=== PATIENT | male | born 1990 | race African-American/Black ===

== ENCOUNTER 2017-05-25 20:21 | Emergency (ER) | payer MEDICARE | END 2017-05-25 21:37 | disposition home or self-care (01) | LOC: D.ER 20:21 | DX: J01.90 Acute sinusitis, unspecified (principal); R51 Headache; F17.200 Nicotine dependence, unspecified, uncomplicated ==

== ENCOUNTER 2017-05-27 17:52 | Emergency (ER) | payer MEDICARE | END 2017-05-27 21:38 | disposition home or self-care (01) | LOC: D.ER 17:52 | DX: J06.9 Acute upper respiratory infection, unspecified (principal); R11.0 Nausea ==

== ENCOUNTER 2017-06-15 21:10 | Emergency (ER) | payer MEDICARE | END 2017-06-15 22:39 | disposition home or self-care (01) | LOC: D.ER 21:10 | DX: R51 Headache (principal); R30.0 Dysuria; F17.200 Nicotine dependence, unspecified, uncomplicated ==

== ENCOUNTER 2017-07-20 03:32 | Emergency (ER) | payer MEDICARE | END 2017-07-20 04:15 | disposition home or self-care (01) | LOC: D.ER 03:32 | DX: G89.29 Other chronic pain (principal); M54.2 Cervicalgia ==

== ENCOUNTER 2017-08-14 00:49 | Emergency (ER) | payer MEDICARE | END 2017-08-14 03:10 | disposition home or self-care (01) | LOC: D.ER 00:49 | DX: R51 Headache (principal) ==

== ENCOUNTER 2017-09-02 23:56 | Emergency (ER) | payer MEDICARE | END 2017-09-03 00:22 | disposition home or self-care (01) | LOC: D.ER 23:56 | DX: S60.311D Abrasion of right thumb, subsequent encounter (principal); X58.XXXD Exposure to other specified factors, subsequent encounter ==

== ENCOUNTER 2018-02-21 02:49 | Emergency (ER) | payer MEDICARE ==
[~2018-02-21] VITALS: Ht 180.3 cm; Wt 59.1 kg
[2018-02-21 02:57] VITALS: BP 124/88; Ht 180.3 cm; Wt 59.1 kg
== END 2018-02-21 03:30 ==
LOC: D.ER 02:49
DX: Z00.00 Encounter for general adult medical examination without abnormal findings (principal); F17.200 Nicotine dependence, unspecified, uncomplicated

== ENCOUNTER 2018-02-23 18:32 | Emergency (ER) | payer MEDICARE ==
[2018-02-23 18:37] VITALS: Ht 180.3 cm
[2018-02-23] MEDS ORDERED: TORADOL10 MG PO (20:14)
[2018-02-23 20:25] VITALS: BP 132/72
== END 2018-02-23 20:27 | disposition home or self-care (01) ==
LOC: D.ER 18:32
DX: S49.91XA Unspecified injury of right shoulder and upper arm, initial encounter (principal); W22.8XXA Striking against or struck by other objects, initial encounter; Y93.89 Activity, other specified; Y92.89 Other specified places as the place of occurrence of the external cause; S46.812A Strain of other muscles, fascia and tendons at shoulder and upper arm level, left arm, initial encounter; R09.89 Other specified symptoms and signs involving the circulatory and respiratory systems; R05 Cough

== ENCOUNTER 2018-03-21 22:41 | Emergency (ER) | payer MEDICARE ==
[~2018-03-21] VITALS: Ht 180.3 cm; Wt 59.1 kg
[~2018-03-21 22:41] MED LIST: TORADOL10 MG PO
[2018-03-21 22:52] VITALS: Ht 180.3 cm; Wt 59.1 kg
[2018-03-21] MEDS ORDERED: PREDNISONE20 MG PO (23:11)
[2018-03-21 23:56] VITALS: BP 132/77
== END 2018-03-21 23:57 | disposition home or self-care (01) ==
LOC: D.ER 22:41
DX: J06.9 Acute upper respiratory infection, unspecified (principal)

== ENCOUNTER 2018-03-24 00:55 | Emergency (ER) | payer MEDICARE ==
[~2018-03-24] VITALS: Ht 180.3 cm; Wt 70.5 kg
[~2018-03-24 00:55] MED LIST changes: +PREDNISONE20 MG PO
[2018-03-24 01:04] VITALS: Ht 180.3 cm; Wt 70.5 kg
[2018-03-24] MEDS ORDERED: VISTARIL25 MG PO (01:06)
[2018-03-24 02:45] VITALS: BP 129/77
[2018-03-25] MEDS ORDERED: ZPAK PO (00:07)
== END 2018-03-24 02:46 | disposition home or self-care (01) ==
LOC: D.ER 00:55
DX: J02.9 Acute pharyngitis, unspecified (principal); G47.00 Insomnia, unspecified

== ENCOUNTER 2018-03-24 23:14 | Emergency (ER) | payer MEDICARE ==
[~2018-03-24] VITALS: Ht 180.3 cm; Wt 63.6 kg
[~2018-03-24 23:14] MED LIST changes: +VISTARIL25 MG PO
[2018-03-24 23:18] VITALS: BP 130/90; Ht 180.3 cm; Wt 63.6 kg
[2018-03-25] MEDS ORDERED: ZPAK PO (00:07)
[2018-03-26] MEDS ORDERED: CYCLOBENZAPRINE10 MG PO (03:30)
[2018-03-26] MEDS ORDERED: IBUPROFEN800 MG PO (03:30)
[2018-03-26] MEDS ORDERED: PENICILLIN V P500 MG PO (03:30)
[2018-03-26] MEDS ORDERED: ACETAMINOPHEN500 M1 PO (03:30)
== END 2018-03-25 01:18 | disposition home or self-care (01) ==
LOC: D.ER 23:14
DX: J06.9 Acute upper respiratory infection, unspecified (principal)

== ENCOUNTER 2018-03-26 02:08 | Emergency (ER) | payer MEDICARE ==
[~2018-03-26] VITALS: Ht 180.3 cm; Wt 75.0 kg
[~2018-03-26 02:08] MED LIST changes: +ZPAK PO
[2018-03-26 02:19] VITALS: Ht 180.3 cm; Wt 75.0 kg
[2018-03-26] MEDS ORDERED: PENICILLIN V P500 MG PO (03:30)
[2018-03-26] MEDS ORDERED: CYCLOBENZAPRINE10 MG PO (03:30)
[2018-03-26] MEDS ORDERED: IBUPROFEN800 MG PO (03:30)
[2018-03-26] MEDS ORDERED: ACETAMINOPHEN500 M1 PO (03:30)
[2018-03-26 03:55] VITALS: BP 138/78
== END 2018-03-26 03:56 | disposition home or self-care (01) ==
LOC: D.ER 02:08
DX: K02.9 Dental caries, unspecified (principal); R51 Headache; K08.89 Other specified disorders of teeth and supporting structures

== ENCOUNTER 2018-04-06 00:11 | Emergency (ER) | payer MEDICARE | END 2018-04-06 01:22 | disposition home or self-care (01) | LOC: D.ER 00:11 | DX: J06.9 Acute upper respiratory infection, unspecified (principal); R05 Cough; R50.9 Fever, unspecified; J02.9 Acute pharyngitis, unspecified; F17.200 Nicotine dependence, unspecified, uncomplicated ==

== ENCOUNTER 2018-04-19 23:12 | Emergency (ER) | payer MEDICARE ==
[~2018-04-19] VITALS: Ht 180.3 cm; Wt 72.7 kg
[~2018-04-19 23:12] MED LIST changes: +ACETAMINOPHEN500 M1 PO; +CYCLOBENZAPRINE10 MG PO; +IBUPROFEN800 MG PO; +PENICILLIN V P500 MG PO; +ROBITUSSIN DM 110 ML PO
[2018-04-19 23:26] VITALS: Ht 180.3 cm; Wt 72.7 kg
[2018-04-20 00:24] VITALS: BP 138/88
== END 2018-04-20 00:22 | disposition home or self-care (01) ==
LOC: D.ER 23:12
DX: Z76.5 Malingerer [conscious simulation] (principal)

== ENCOUNTER 2018-05-17 03:24 | Emergency (ER) | payer MEDICARE ==
[~2018-05-17] VITALS: Ht 180.3 cm; Wt 59.1 kg
[2018-05-17 03:29] VITALS: Ht 180.3 cm; Wt 59.1 kg
[2018-05-17] MEDS ORDERED: IBUPROFEN800 MG PO (04:15)
[2018-05-17 04:26] VITALS: BP 128/90
== END 2018-05-17 04:30 | disposition home or self-care (01) ==
LOC: D.ER 03:24
DX: S69.91XA Unspecified injury of right wrist, hand and finger(s), initial encounter (principal); W22.8XXA Striking against or struck by other objects, initial encounter; Y93.89 Activity, other specified; Y92.89 Other specified places as the place of occurrence of the external cause; F17.200 Nicotine dependence, unspecified, uncomplicated

== ENCOUNTER 2018-05-21 22:00 | Emergency (ER) | payer MEDICARE ==
[~2018-05-21] VITALS: Ht 180.3 cm; Wt 68.2 kg
[2018-05-21 22:15] VITALS: Ht 180.3 cm; Wt 68.2 kg
[2018-05-21 23:59] VITALS: BP 133/79
== END 2018-05-21 23:59 | disposition home or self-care (01) ==
LOC: D.ER 22:00
DX: Z76.5 Malingerer [conscious simulation] (principal); F17.200 Nicotine dependence, unspecified, uncomplicated

== ENCOUNTER 2018-05-24 00:37 | Emergency (ER) | payer MEDICARE ==
[~2018-05-24] VITALS: Ht 180.3 cm; Wt 72.7 kg
[2018-05-24 00:52] VITALS: Ht 180.3 cm; Wt 72.7 kg
[2018-05-24 01:29] VITALS: BP 118/67
[2018-05-25] MEDS ORDERED: AMOXICILLIN500 M1 PO (00:56)
[2018-05-25] MEDS ORDERED: PREDNISONE20 MG PO (00:56)
== END 2018-05-24 01:00 | disposition home or self-care (01) ==
LOC: D.ER 00:37
DX: M25.511 Pain in right shoulder (principal)

== ENCOUNTER 2018-05-25 00:41 | Emergency (ER) | payer MEDICARE ==
[~2018-05-25] VITALS: Ht 180.3 cm; Wt 63.6 kg
[2018-05-25 00:45] VITALS: Ht 180.3 cm; Wt 63.6 kg
[2018-05-25] MEDS ORDERED: AMOXICILLIN500 M1 PO (00:56)
[2018-05-25] MEDS ORDERED: PREDNISONE20 MG PO (00:56)
[2018-05-25 01:15] VITALS: BP 117/56
== END 2018-05-25 01:17 | disposition home or self-care (01) ==
LOC: D.ER 00:41
DX: J02.9 Acute pharyngitis, unspecified (principal); J06.9 Acute upper respiratory infection, unspecified

== ENCOUNTER 2018-05-27 00:37 | Emergency (ER) | payer MEDICARE ==
[~2018-05-27] VITALS: Ht 180.3 cm; Wt 70.5 kg
[~2018-05-27 00:37] MED LIST changes: +AMOXICILLIN500 M1 PO
[2018-05-27 00:55] VITALS: Ht 180.3 cm; Wt 70.5 kg
[2018-05-27] MEDS ORDERED: TORADOL10 MG PO (01:33)
[2018-05-27] MEDS ORDERED: ROBAXIN500 MG PO (01:33)
[2018-05-27 02:09] VITALS: BP 130/90
== END 2018-05-27 02:09 | disposition home or self-care (01) ==
LOC: D.ER 00:37
DX: M25.511 Pain in right shoulder (principal)

== ENCOUNTER 2018-06-13 05:22 | Emergency (ER) | payer MEDICARE ==
[~2018-06-13] VITALS: Ht 180.3 cm; Wt 59.1 kg
[~2018-06-13 05:22] MED LIST changes: +ROBAXIN500 MG PO
[2018-06-13 05:27] VITALS: BP 130/88; Ht 180.3 cm; Wt 59.1 kg
[2018-06-13] MEDS ORDERED: ROBITUSSIN DM 110 ML PO (05:37)
== END 2018-06-13 05:45 | disposition home or self-care (01) ==
LOC: D.ER 05:22
DX: J06.9 Acute upper respiratory infection, unspecified (principal); J02.9 Acute pharyngitis, unspecified

== ENCOUNTER 2018-11-21 21:43 | Emergency (ER) | payer MEDICARE ==
[~2018-11-21] VITALS: Ht 180.3 cm; Wt 59.2 kg
[2018-11-21 21:58] VITALS: Ht 180.3 cm; Wt 59.2 kg
[2018-11-21] MEDS ORDERED: DICLOFENAC SODI50 MG PO (23:44)
[2018-11-22 00:53] VITALS: BP 130/84
== END 2018-11-22 00:53 | disposition home or self-care (01) ==
LOC: D.ER 21:43
DX: R07.81 Pleurodynia (principal); F17.210 Nicotine dependence, cigarettes, uncomplicated

== ENCOUNTER 2018-12-06 15:48 | Emergency (ER) | payer MEDICARE ==
[~2018-12-06] VITALS: Ht 180.3 cm; Wt 54.5 kg
[~2018-12-06 15:48] MED LIST changes: +DICLOFENAC SODI50 MG PO
[2018-12-06 15:51] VITALS: Ht 180.3 cm; Wt 54.5 kg
[2018-12-06 16:57] LABS: APPEARANCE CLEAR (CLEAR); BILIRUBIN NEGATIVE (NEGATIVE); COLOR YELLOW (YELLOW); GLUCOSE NEGATIVE (NEGATIVE); KETONE NEGATIVE (NEGATIVE); NITRITE NEGATIVE (NEGATIVE); PROTEIN 1+ mg/dL (NEGATIVE); UROBILINOGEN NORMAL (NORMAL)
[2018-12-06 17:00] LABS: BACTERIA FEW /hpf (NONE SEEN); EPITHELIAL CELLS 0-5 /hpf (0-5); MUCUS >1+ /lpf (NONE SEEN); RED CELLS - URINE OCC /hpf (0-5); WHITE CELLS - URINE 0-5 /hpf (0-5)
[2018-12-06 17:40] VITALS: BP 117/80
== END 2018-12-06 17:39 | disposition home or self-care (01) ==
LOC: D.ER 15:48
PROVIDERS: Emergency Medicine
DX: R10.30 Lower abdominal pain, unspecified (principal)

== ENCOUNTER 2018-12-15 22:37 | Emergency (ER) | payer MEDICARE ==
[~2018-12-15] VITALS: Ht 180.3 cm; Wt 68.2 kg
[2018-12-15 22:44] VITALS: BP 127/76; Ht 180.3 cm; Wt 68.2 kg
[2018-12-15] MEDS ORDERED: NAPROSYN500 MG PO (23:24)
== END 2018-12-15 23:29 | disposition home or self-care (01) ==
LOC: D.ER 22:37
DX: S63.501A Unspecified sprain of right wrist, initial encounter (principal); X58.XXXA Exposure to other specified factors, initial encounter; Y93.89 Activity, other specified; Y92.89 Other specified places as the place of occurrence of the external cause

== ENCOUNTER 2018-12-16 23:57 | Emergency (ER) | payer MEDICARE ==
[~2018-12-16] VITALS: Ht 180.3 cm; Wt 59.1 kg
[~2018-12-16 23:57] MED LIST changes: +NAPROSYN500 MG PO
[2018-12-17 00:10] VITALS: BP 128/82; Ht 180.3 cm; Wt 59.1 kg
== END 2018-12-17 00:25 | disposition home or self-care (01) ==
LOC: D.ER 23:57
DX: M25.531 Pain in right wrist (principal)

== ENCOUNTER 2018-12-30 16:57 | Emergency (ER) | payer MEDICARE ==
[~2018-12-30] VITALS: Ht 180.3 cm; Wt 59.1 kg
[2018-12-30 17:39] VITALS: BP 127/83; Ht 180.3 cm; Wt 59.1 kg
== END 2019-01-26 16:54 | disposition home or self-care (01) ==
LOC: D.ER 16:57
DX: J02.9 Acute pharyngitis, unspecified (principal)

== ENCOUNTER 2019-01-17 22:27 | Emergency (ER) | payer MEDICARE ==
[~2019-01-17] VITALS: Ht 180.3 cm; Wt 54.5 kg
[2019-01-17 22:33] VITALS: Ht 180.3 cm; Wt 54.5 kg
[2019-01-17 23:57] VITALS: BP 118/81
== END 2019-01-17 23:57 | disposition home or self-care (01) ==
LOC: D.ER 22:27
DX: M25.531 Pain in right wrist (principal)

== ENCOUNTER 2019-02-08 04:39 | Emergency (ER) | payer MEDICARE ==
[~2019-02-08] VITALS: Ht 180.3 cm; Wt 68.2 kg
[2019-02-08 04:44] VITALS: Ht 180.3 cm; Wt 68.2 kg
[2019-02-08] MEDS ORDERED: SKELAXIN800 MG PO (05:16)
[2019-02-08] MEDS ORDERED: NAPROSYN500 MG PO (05:16)
[2019-02-08 05:25] VITALS: BP 125/80
== END 2019-02-08 05:25 | disposition home or self-care (01) ==
LOC: D.ER 04:39
DX: M25.511 Pain in right shoulder (principal); M25.512 Pain in left shoulder; F17.200 Nicotine dependence, unspecified, uncomplicated

== ENCOUNTER 2019-02-09 23:33 | Emergency (ER) | payer MEDICARE ==
[~2019-02-09] VITALS: Ht 180.3 cm; Wt 59.1 kg
[~2019-02-09 23:33] MED LIST changes: +SKELAXIN800 MG PO
[2019-02-09 23:36] VITALS: Ht 180.3 cm; Wt 59.1 kg
[2019-02-10] MEDS ORDERED: BENADRYL25 MG PO (00:44)
[2019-02-10 00:56] VITALS: BP 137/73
== END 2019-02-10 00:57 | disposition home or self-care (01) ==
LOC: D.ER 23:33
DX: G47.00 Insomnia, unspecified (principal)

== ENCOUNTER 2019-02-14 20:23 | Emergency (ER) | payer MEDICARE ==
[~2019-02-14] VITALS: Ht 180.3 cm; Wt 59.0 kg
[~2019-02-14 20:23] MED LIST changes: +BENADRYL25 MG PO
[2019-02-14 20:36] VITALS: Ht 180.3 cm; Wt 59.0 kg
[2019-02-14] MEDS ORDERED: BENADRYL25 MG PO (20:58)
[2019-02-14 22:16] VITALS: BP 122/85
== END 2019-02-14 21:10 | disposition home or self-care (01) ==
LOC: D.ER 20:23
DX: G47.00 Insomnia, unspecified (principal); Z59.0 Homelessness

== ENCOUNTER 2019-02-22 23:19 | Emergency (ER) | payer MEDICARE ==
[~2019-02-22] VITALS: Ht 180.3 cm; Wt 63.5 kg
[2019-02-22 23:33] VITALS: Ht 180.3 cm; Wt 63.5 kg
[2019-02-22] MEDS ORDERED: NAPROSYN500 MG PO (23:51)
[2019-02-23 00:21] VITALS: BP 121/77
== END 2019-02-23 00:22 | disposition home or self-care (01) ==
LOC: D.ER 23:19
DX: M25.512 Pain in left shoulder (principal)

== ENCOUNTER 2019-04-26 19:50 | Emergency (ER) | payer MEDICARE ==
[~2019-04-26] VITALS: Ht 180.3 cm; Wt 62.7 kg
[2019-04-26 20:24] VITALS: Ht 180.3 cm; Wt 62.7 kg
[2019-04-26 20:56] LABS: BASOPHILS 0.2 % (0-2); EOSINOPHILS 1.9 % (0-7); HEMATOCRIT 40.1 % (42.0-54.0); HEMOGLOBIN 13.7 g/dL (13.5-17.5); IMMATURE GRANULOCYTES 0.2 % (0-5); LYMPHOCYTES 23.1 % (15-50); MCH 30.5 pg (26.0-34.0); MCHC 34.2 g/dL (31.0-37.0); MCV 89.3 fL (80.0-100.0); MEAN PLATELET VOLUME 9.8 fL (7.4-10.4); MONOCYTES 9.7 % (2-11); NEUTROPHILS 64.9 % (40-80); PLATELET COUNT 199 10x3/uL (130-400); RBC 4.49 10x6/uL (4.20-6.10); RDW 12.7 % (11.5-14.5); WBC 5.8 10x3/uL (4.8-10.8)
[2019-04-26 21:13] LABS: CALC OSMOLALITY 284 mosm/kg (275-300); CALCIUM 8.7 mg/dL (8.5-10.1); CARBON DIOXIDE 32.8 mmol/L (21.0-32.0); CHLORIDE - SERUM 108 mmol/L (98-107); CREATININE - SERUM 0.8 mg/dL (0.6-1.3); GLUCOSE 104 mg/dL (74-106); POTASSIUM - SERUM 4.3 mmol/L (3.5-5.1); SODIUM 144 mmol/L (136-145); UREA NITROGEN 8 mg/dL (7-18); eGFR NON AFRICAN AMERICAN > 90 mL/min (90-120)
[2019-04-26 21:20] LABS: ALBUMIN 3.8 g/dL (3.4-5.0); ALKALINE PHOSPHATASE 110 U/L (46-116); ALT (SGPT) 24 U/L (10-68); BILIRUBIN - TOTAL 0.24 mg/dL (0.2-1.3); PROTEIN - SERUM 7.2 g/dL (6.4-8.2)
[2019-04-26 21:25] LABS: LIPASE 47 U/L (73-393)
[2019-04-26] MEDS ORDERED: EC-NAPROSYN500 MG PO (23:25)
[2019-04-26] MEDS ORDERED: DULCOLAX STOOL100 MG PO (23:25)
[2019-04-26 23:49] VITALS: BP 118/71
== END 2019-04-26 23:49 | disposition home or self-care (01) ==
LOC: D.ER 19:50
PROVIDERS: Family Medicine
DX: K59.00 Constipation, unspecified (principal); M25.531 Pain in right wrist

== ENCOUNTER 2019-05-09 23:40 | Emergency (ER) | payer MEDICARE ==
[~2019-05-09] VITALS: Ht 180.3 cm; Wt 72.6 kg
[~2019-05-09 23:40] MED LIST changes: +DULCOLAX STOOL100 MG PO; +EC-NAPROSYN500 MG PO
[2019-05-09 23:56] VITALS: Ht 180.3 cm; Wt 72.6 kg
[2019-05-10 01:10] VITALS: BP 132/84
== END 2019-05-10 01:11 | disposition home or self-care (01) ==
LOC: D.ER 23:40
DX: Z00.00 Encounter for general adult medical examination without abnormal findings (principal); Z76.5 Malingerer [conscious simulation]

== ENCOUNTER 2019-05-13 01:16 | Emergency (ER) | payer MEDICARE ==
[~2019-05-13] VITALS: Ht 180.3 cm; Wt 75.0 kg
[2019-05-13 01:38] VITALS: Ht 180.3 cm; Wt 75.0 kg
[2019-05-13] MEDS ORDERED: IBUPROFEN800 MG PO (01:54)
[2019-05-13 02:02] VITALS: BP 133/89
== END 2019-05-13 02:03 | disposition home or self-care (01) ==
LOC: D.ER 01:16
DX: R07.89 Other chest pain (principal); M25.512 Pain in left shoulder

== ENCOUNTER 2019-05-15 19:07 | Emergency (ER) | payer MEDICARE ==
[~2019-05-15] VITALS: Ht 180.3 cm; Wt 75.0 kg
[2019-05-15 19:13] VITALS: Ht 180.3 cm; Wt 75.0 kg
[2019-05-15 19:45] VITALS: BP 118/72
== END 2019-05-15 19:45 | disposition home or self-care (01) ==
LOC: D.ER 19:07
DX: Z13.89 Encounter for screening for other disorder (principal)

== ENCOUNTER 2019-06-22 21:34 | Emergency (ER) | payer MEDICARE ==
[~2019-06-22] VITALS: Ht 180.3 cm; Wt 63.6 kg
[2019-06-22 21:41] VITALS: Ht 180.3 cm; Wt 63.6 kg
[2019-06-22 22:52] VITALS: BP 120/71
== END 2019-06-22 22:52 | disposition home or self-care (01) ==
LOC: D.ER 21:34
DX: R51 Headache (principal)

== ENCOUNTER 2019-07-03 00:31 | Emergency (ER) | payer MEDICARE ==
[~2019-07-03] VITALS: Ht 180.3 cm; Wt 58.2 kg
[2019-07-03 00:57] VITALS: BP 144/78; Ht 180.3 cm; Wt 58.2 kg
== END 2019-07-03 01:48 | disposition home or self-care (01) ==
LOC: D.ER 00:31
DX: R51 Headache (principal)

== ENCOUNTER 2019-07-08 14:35 | Emergency (ER) | payer MEDICARE ==
[~2019-07-08] VITALS: Ht 180.3 cm; Wt 59.1 kg
[2019-07-08 14:39] VITALS: BP 117/65; Ht 180.3 cm; Wt 59.1 kg
== END 2019-07-08 15:25 | disposition home or self-care (01) ==
LOC: D.ER 14:35
DX: R51 Headache (principal)

== ENCOUNTER 2019-07-15 16:19 | Emergency (ER) | payer MEDICARE ==
[~2019-07-15] VITALS: Ht 180.3 cm; Wt 59.1 kg
[2019-07-15 16:28] VITALS: Ht 180.3 cm; Wt 59.1 kg
[2019-07-15] MEDS ORDERED: ACETAMINOPHEN500 M1 PO (17:00)
[2019-07-15 17:26] VITALS: BP 110/70
== END 2019-07-15 17:17 | disposition home or self-care (01) ==
LOC: D.ER 16:19
DX: R51 Headache (principal)

== ENCOUNTER 2019-07-16 02:16 | Emergency (ER) | payer MEDICARE ==
[~2019-07-16] VITALS: Ht 180.3 cm; Wt 59.0 kg
[2019-07-16 02:29] VITALS: BP 137/96; Ht 180.3 cm; Wt 59.0 kg
== END 2019-07-16 03:14 | disposition home or self-care (01) ==
LOC: D.ER 02:16
DX: S60.221A Contusion of right hand, initial encounter (principal); W22.8XXA Striking against or struck by other objects, initial encounter; Y93.9 Activity, unspecified; Y92.9 Unspecified place or not applicable

== ENCOUNTER 2019-09-13 23:32 | Emergency (ER) | payer MEDICARE ==
[~2019-09-13] VITALS: Ht 180.3 cm; Wt 81.8 kg
[2019-09-13 23:58] VITALS: Ht 180.3 cm; Wt 81.8 kg
[2019-09-14 01:58] VITALS: BP 121/87
== END 2019-09-14 02:05 | disposition home or self-care (01) ==
LOC: D.ER 23:32
DX: K59.00 Constipation, unspecified (principal); R10.9 Unspecified abdominal pain

== ENCOUNTER 2019-10-01 01:11 | Emergency (ER) | payer MEDICARE ==
[~2019-10-01] VITALS: Ht 180.3 cm; Wt 54.5 kg
[2019-10-01 01:18] VITALS: BP 147/103; Ht 180.3 cm; Wt 54.5 kg
[2019-10-01] MEDS ORDERED: STERAPRED 5MG 65 M1 PO (02:07)
== END 2019-10-01 02:38 | disposition home or self-care (01) ==
LOC: D.ER 01:11
DX: J02.9 Acute pharyngitis, unspecified (principal); R07.0 Pain in throat

== ENCOUNTER 2019-10-03 02:43 | Emergency (ER) | payer MEDICARE ==
[~2019-10-03] VITALS: Ht 180.3 cm; Wt 54.5 kg
[~2019-10-03 02:43] MED LIST changes: +STERAPRED 5MG 65 M1 PO
[2019-10-03 02:50] VITALS: Ht 180.3 cm; Wt 54.5 kg
[2019-10-03 03:42] VITALS: BP 122/61
== END 2019-10-03 03:42 | disposition home or self-care (01) ==
LOC: D.ER 02:43
DX: M79.601 Pain in right arm (principal); M79.641 Pain in right hand

== ENCOUNTER 2019-10-05 15:37 | Emergency (ER) | payer MEDICARE ==
[~2019-10-05] VITALS: Ht 180.3 cm; Wt 68.2 kg
[2019-10-05 15:49] VITALS: Ht 180.3 cm; Wt 68.2 kg
[2019-10-05] MEDS ORDERED: CIPRODEX OTIC7.5 ML LEFT EAR (16:16)
[2019-10-05 16:45] VITALS: BP 124/73
== END 2019-10-05 16:47 | disposition home or self-care (01) ==
LOC: D.ER 15:37
DX: H60.92 Unspecified otitis externa, left ear (principal)

== ENCOUNTER 2019-10-07 18:06 | Emergency (ER) | payer MEDICARE ==
[~2019-10-07] VITALS: Ht 180.3 cm; Wt 54.5 kg
[~2019-10-07 18:06] MED LIST changes: +CIPRODEX OTIC7.5 ML LEFT EAR
[2019-10-07 18:26] VITALS: Ht 180.3 cm; Wt 54.5 kg
[2019-10-07 21:25] VITALS: BP 132/88
== END 2019-10-07 21:33 | disposition home or self-care (01) ==
LOC: D.ER 18:06
DX: S63.501A Unspecified sprain of right wrist, initial encounter (principal); R22.31 Localized swelling, mass and lump, right upper limb; X58.XXXA Exposure to other specified factors, initial encounter

== ENCOUNTER 2019-10-09 11:58 | Emergency (ER) | payer MEDICARE ==
[2019-10-09 12:03] VITALS: BP 117/79; Ht 180.3 cm
[2019-10-09] MEDS ORDERED: ACETAMINOPHEN500 M1 PO (12:10)
== END 2019-10-09 12:26 | disposition home or self-care (01) ==
LOC: D.ER 11:58
DX: M25.531 Pain in right wrist (principal)

== ENCOUNTER → 2019-10-18 | Emergency (ER) | payer MEDICARE ==
[~2019-10-18] VITALS: Ht 180.3 cm; Wt 63.6 kg
[2019-10-18 05:39] VITALS: BP 145/83; Ht 180.3 cm; Wt 63.6 kg
== END ==
LOC: D.ER 05:35
DX: Z48.00 Encounter for change or removal of nonsurgical wound dressing (principal)

== ENCOUNTER 2019-10-23 23:50 | Emergency (ER) | payer MEDICARE ==
[~2019-10-23] VITALS: Ht 180.3 cm; Wt 63.6 kg
[2019-10-23 23:58] VITALS: BP 128/84; Ht 180.3 cm; Wt 63.6 kg
== END 2019-10-24 00:28 | disposition home or self-care (01) ==
LOC: D.ER 23:50
DX: R51 Headache (principal)

== ENCOUNTER 2019-11-04 02:14 | Emergency (ER) | payer MEDICARE ==
[~2019-11-04] VITALS: Ht 180.3 cm; Wt 86.4 kg
[2019-11-04 02:20] VITALS: Ht 180.3 cm; Wt 86.4 kg
[2019-11-04 02:31] VITALS: BP 130/87
== END 2019-11-04 02:32 | disposition home or self-care (01) ==
LOC: D.ER 02:14
DX: M25.531 Pain in right wrist (principal)

== ENCOUNTER 2019-11-25 03:23 | Emergency (ER) | payer MEDICARE ==
[~2019-11-25] VITALS: Ht 180.3 cm; Wt 63.6 kg
[2019-11-25 03:27] VITALS: Ht 180.3 cm; Wt 63.6 kg
[2019-11-25 03:54] LABS: BASOPHILS 0.4 % (0-2); EOSINOPHILS 7.8 % (0-7); HEMATOCRIT 43.7 % (42.0-54.0); HEMOGLOBIN 14.4 g/dL (13.5-17.5); IMMATURE GRANULOCYTES 0.1 % (0-5); LYMPHOCYTES 37.2 % (15-50); MCH 30.6 pg (26.0-34.0); MCV 92.8 fL (80.0-100.0); MEAN PLATELET VOLUME 9.6 fL (7.4-10.4); MONOCYTES 10.6 % (2-11); NEUTROPHILS 43.9 % (40-80); PLATELET COUNT 202 10x3/uL (130-400); RBC 4.71 10x6/uL (4.20-6.10); RDW 13.8 % (11.5-14.5); WBC 6.7 10x3/uL (4.8-10.8)
[2019-11-25 03:56] LABS: BILIRUBIN NEGATIVE (NEGATIVE); GLUCOSE NEGATIVE (NEGATIVE); KETONE NEGATIVE (NEGATIVE); NITRITE NEGATIVE (NEGATIVE); UROBILINOGEN NORMAL (NORMAL)
[2019-11-25 04:09] LABS: CALC OSMOLALITY 279 mosm/kg (275-300); CALCIUM 8.9 mg/dL (8.5-10.1); CHLORIDE - SERUM 107 mmol/L (98-107); CREATININE - SERUM 0.8 mg/dL (0.6-1.3); GLUCOSE 96 mg/dL (74-106); POTASSIUM - SERUM 3.7 mmol/L (3.5-5.1); SODIUM 140 mmol/L (136-145); UREA NITROGEN 15 mg/dL (7-18); eGFR NON AFRICAN AMERICAN > 90 mL/min (90-120)
[2019-11-25 04:14] LABS: ALBUMIN 3.7 g/dL (3.4-5.0); ALKALINE PHOSPHATASE 106 U/L (30-120); ALT (SGPT) 24 U/L (10-68); BILIRUBIN - TOTAL 0.24 mg/dL (0.2-1.3); LIPASE 67 U/L (73-393); PROTEIN - SERUM 7.1 g/dL (6.4-8.2)
[2019-11-25] MEDS ORDERED: ZOFRAN ODT4 MG/UDTAB PO (04:30)
[2019-11-25 05:49] VITALS: BP 123/78
== END 2019-11-25 05:49 | disposition home or self-care (01) ==
LOC: D.ER 03:23
PROVIDERS: Family Medicine
DX: R11.2 Nausea with vomiting, unspecified (principal); R10.13 Epigastric pain